=== PATIENT | female | born 1985 | race Caucasian/White ===

== ENCOUNTER 2019-10-17 19:27 | Emergency (ER) | payer SELFPAY ==
[~2019-10-17] VITALS: Ht 165.1 cm; Wt 100.0 kg
[~2019-10-17 19:27] MED LIST: ADDERALL20 MG PO; BACTRIM DS 8001 TAB PO; CIPRO 500MG TA500 MG PO; FE-2020 MG PO; FLEXERIL10 MG PO; FLINTSTONES VITAMIN; IMODIUM 2MG CAPS2 MG PO; NORCO 325 MG-51 TAB PO; PEPCID 20MG TAB20 MG PO; PHENERGAN 25 TA25 MG PO; PHENERGAN25 MG RC; PROAIR HFA0.09 MG/AC IH; PYRIDIUM 100MG100 MG PO; SINGULAIR; VENTOLIN0.09 MG IH; XANAX 0.5MG0.5 MG PO; ZOFRAN 4MG T4 MG/TAB PO; ZOLOFT 100MG100 MG PO
[2019-10-17 19:49] VITALS: TEMP 98.1
[2019-10-17 23:11] VITALS: BP 135/78; PULSE 80
== END 2019-10-17 23:12 | disposition home or self-care (01) ==
LOC: COL.ER 19:27
DX: R51 Headache (principal)
CPT/HCPCS: J1100; J1200; J1630; J1885